=== PATIENT | male | born 2000 | race Caucasian/White ===

== ENCOUNTER 2023-04-19 16:37 | Emergency (ER) | payer BC | END 2023-04-19 17:27 | disposition home or self-care (01) | LOC: MADERS 16:37 | DX: S01.112D Laceration without foreign body of left eyelid and periocular area, subsequent encounter (principal); W18.30XD Fall on same level, unspecified, subsequent encounter; M25.562 Pain in left knee; B99.9 Unspecified infectious disease | CPT/HCPCS: 99283 ==